=== PATIENT | female | born 1940 | race Caucasian/White ===

== ENCOUNTER 2016-12-22 12:30 | Inpatient (IN) | payer MEDICARE ==
[2017-01-02 09:34] LABS: ABO GROUP O; ANTIBODY SCREEN NEGATIVE (NEGATIVE); RH TYPE POSITIVE
[2017-01-02] MEDS ORDERED: NALOXONE 0.4 MG/1 ML VIAL IVP PRN (13:02)
[2017-01-02] MEDS ORDERED: MAGNESIUM HYDROXIDE 30 ML UDC PO PRN (13:02)
[2017-01-02] MEDS ORDERED: HYDROMORPHONE HCL 1 MG/ML CPJ IM PRN ×2 (13:02)
[2017-01-02] MEDS ORDERED: ACETAMINOPHEN W/ CODEINE 300MG/60MG TABLET PO PRN ×2 (13:02)
[2017-01-02] MEDS ORDERED: KETOROLAC 30 MG/ML VIAL IVP PRN ×2 (13:02)
[2017-01-02] MEDS ORDERED: ACETAMINOPHEN 325 MG TAB PO PRN (13:02)
[2017-01-02] MEDS ORDERED: DIPHENHYDRAMINE HCL 25 MG CAPSULE PO PRN (13:02)
[2017-01-02] MEDS ORDERED: HYDROCODONE/APAP 10/325 TABLET PO PRN (13:02)
[2017-01-02] MEDS ORDERED: ZOLPIDEM TARTRATE 5 MG TABLET PO PRN (13:02)
[2017-01-02] MEDS ORDERED: HYDROMORPHONE HCL 2 MG/ML VIAL IM PRN (13:02)
[2017-01-02] MEDS ORDERED: BISACODYL 10 MG SUPP RC PRN (13:02)
[2017-01-02] MEDS ORDERED: CEFAZOLIN 2 Gram 2 GM/50 ML BAG IVPB ONE (13:15)
[2017-01-02] MEDS ORDERED: VANCOMYCIN HCL 1,000 MG in 0.9 % SODIUM CHLORIDE 250ML 250 ML IVPB ONE (13:15)
[2017-01-02] MEDS ORDERED: ACETAMINOPHEN 1,000 MG/100 ML BTL IV ONE (13:15)
[2017-01-02] MEDS ORDERED: CELECOXIB 100 MG CAPSULE PO ONE (13:15)
[2017-01-02] MEDS ORDERED: MECLIZINE 25 MG TABLET PO ONE (13:15)
[2017-01-02] MEDS ORDERED: METOCLOPRAMIDE 10 MG TABLET PO ONE (13:15)
[2017-01-02] MEDS ORDERED: FAMOTIDINE 20MG TABLET PO ONE (13:15)
[2017-01-02] MEDS ORDERED: HYDROMORPHONE HCL 2 MG/ML VIAL IV ONE (14:00)
[2017-01-02] MEDS ORDERED: BUPIVACAINE 0.5% W/EPI MPF 30 ML VIAL IVP ONE (14:00)
[2017-01-02] MEDS ORDERED: *PACU ONLY* KETAMINE HCL 10 MG/ML (20ML) VIAL IV ONE (14:00)
[2017-01-02] MEDS ORDERED: FENTANYL PF 100MCG/2ML VIAL IV ONE (14:00)
[2017-01-02] MEDS ORDERED: EPHEDRINE SULFATE 50 MG/ML ML IV ONE (14:00)
[2017-01-02] MEDS ORDERED: MIDAZOLAM HCL 2MG/2ML VIAL IV ONE (14:00)
[2017-01-02] MEDS ORDERED: LIDOCAINE 2% MDV (20MG/ML) 20ML VIAL IV ONE (14:00)
[2017-01-02] MEDS ORDERED: PROPOFOL 10 MG/ML VIAL IV ONE (14:00)
--- NOTE | 2017-01-02 18:11 | Rehab Evaluation ---
Patient Information - Patient Information Diagnosis: JESSICA left secondary to OA Ordered Treatment: PT Evaluate and Treat Status: Initial Evaluation Surgery: Yes (JESSICA left) Date of Surgery: 01/02/17 Past Medical/Surgical Hx: PAST MEDICAL/SURGICAL HISTORY Past Surgical History lumbar fusion cervical fusion CTS bilat PMH - Respiratory Hx Respiratory Disorders No PMH - Cardiovascular Hx Cardiovascular Disorders Yes Hx Hypertension Yes: good control on meds Hx Rheumatic Fever Yes: 3x's as a child Exercise Tolerance Fair Comment: high cholesterol PMH - Neuro Hx Neurological Disorders No PMH - GI Hx Gastrointestinal Disorders Yes Hx Gastroesophageal Reflux Yes: on meds good control Hx Irritable Bowel Yes: mild PMH - Hx Genitourinary Disorders No Hx Age of Menopause 42 PMH - Endocrine Hx Endocrine Disorders No Hx Diabetes No Hx Thyroid Disease No PMH - Musculoskeletal Hx Musculoskeletal Disorders Yes Hx Arthritis Yes Hx Osteoporosis Yes PMH - Psych Hx Psychiatric Problems No PMH - Hematology/Oncology Hx Hematology/Oncology No Disorders Precautions: [place], Fall, Other (JESSICA precautions) - Time With Patient Total Time Spent With Patient (Min): 30 Treatment Procedures: Detail (Patient seen in room, initially had too much pain to even try exercises, but nurse gave her something else for pain and PT came back 20 min later and she was able to tolerate some exercises for left hip, reviewed hip precautions and was able to sit up and ambulate to bathroom with standard walker and CGA. Became nauseous initially and after back from bathroom but no vomiting. Ambulation about 20 feet total then assisted patient back into bed with left LE supported with pillow between knees.) Subjective Information - Subjective Information Per Patient (Patient lives with , has everything needed to go home with family assist.) Objective Data - Pain Pain Present: Yes Pain Intensity: 10 - Mental Status Patient Orientation: Oriented x3 - Visual Perception Appears within normal limits for therapeutic activities - ROM Within normal limits (except left hip decreased secondary to surgery and pain about 75% today.) - Strength/Tone Within normal limits (except left hip, but patient is able to weightbear with min symptoms after new pain med.) - Coordination Appears within normal limits for therapeutic activities - Bed Mobility Needs Assist (Patient needed some assist to get herself to edge of bed then sit to stand with cues initially. Also needed cues for proper hip precautions initially.) - Transfers Needs Assist - Balance Balance Sitting: Good Balance Standing: Good - Sensation Intact - Gait Detail (Standard walker WBAT left 20 feet to bathroom initially and back to bed. ) Therapy Assessment - Therapy Assessment Detail (Patient is having some issues with pain control today but did better after second injection. Able to move quite well with walker and into/out of bed. ) Patient Education - Patient Education Teaching Topic: Equipment Use, Exercise/Activity Response: Return Demonstration Teaching Method: Demonstration Teaching Recipient: Patient Barriers To Learning: None Problem List - Problem List Physical Therapy Problem List: Detail (Some issues with bed mobility, pain control and functional ambulation yet. Patient also having issues with voiding today.) Goals - Goals Physical Therapy Goals: Patient will be independent with hip precautions, mobility into/out of bed and gait community distances for safety to go home. Prognosis - Prognosis Good (Should do better as pain controlled better.) Plan - Plan Physical Therapy Plan: Continue PT BID day after surgery, possibly next day also as needed to go home safely with family.
[2017-01-02] MEDS: ONDANSETRON HCL IV 4 MG/2 ML VIAL IVP PRN (18:25)
[2017-01-02] MEDS: CEFAZOLIN 2 Gram 2 GM/50 ML BAG IVPB SCH (20:03)
[2017-01-02] MEDS: HYDROCODONE/APAP 10/325 TABLET PO PRN (20:30)
[2017-01-02] MEDS: POTASSIUM CHLORIDE/D5-0.9%NACL 20 MEQ/1,000 ML BAG IV SCH (20:33)
[2017-01-02] MEDS: ATORVASTATIN 20 MG TABLET PO SCH (22:42)
[2017-01-02] MEDS: DOCUSATE SODIUM 100 MG CAPSULE PO SCH (22:44)
[2017-01-03] MEDS: GABAPENTIN 300 MG CAPSULE PO SCH ×2 (00:24→22:27)
[2017-01-03] MEDS: POTASSIUM CHLORIDE/D5-0.9%NACL 20 MEQ/1,000 ML BAG IV SCH ×2 (00:25→06:15)
[2017-01-03] MEDS: CEFAZOLIN 2 Gram 2 GM/50 ML BAG IVPB SCH ×2 (04:14→09:45)
[2017-01-03] MEDS: HYDROCODONE/APAP 10/325 TABLET PO PRN ×5 (04:21→21:12)
[2017-01-03 06:41] LABS: HEMATOCRIT 32.7 % (35.0-47.0); HEMOGLOBIN 10.3 gm/dl (11.6-16.0)
[2017-01-03] MEDS: PANTOPRAZOLE SODIUM 40 MG TABLET PO SCH (06:52)
[2017-01-03 06:54] LABS: ANION GAP 3.2 (7-16); BLOOD UREA NITROGEN 14 mg/dL (7-17); CARBON DIOXIDE 24.8 mmol/L (22-30); CREATININE 0.6 mg/dL (0.52-1.04); EST GLOMERULAR FILTRATION RATE > 60 ml/min; GLUCOSE,RANDOM 114 mg/dL (70-110)
--- NOTE | 2017-01-03 08:36 | Rehab Evaluation ---
Patient Information - Patient Information Diagnosis: JESSICA left secondary to OA Ordered Treatment: OT Evaluate and Treat Status: Initial Evaluation Surgery: Yes (JESSICA left) Date of Surgery: 01/02/17 Past Medical/Surgical Hx: PAST MEDICAL/SURGICAL HISTORY Past Surgical History lumbar fusion cervical fusion CTS bilat PMH - Respiratory Hx Respiratory Disorders No PMH - Cardiovascular Hx Cardiovascular Disorders Yes Hx Hypertension Yes: good control on meds Hx Rheumatic Fever Yes: 3x's as a child Exercise Tolerance Fair Comment: high cholesterol PMH - Neuro Hx Neurological Disorders No PMH - GI Hx Gastrointestinal Disorders Yes Hx Gastroesophageal Reflux Yes: on meds good control Hx Irritable Bowel Yes: mild PMH - Hx Genitourinary Disorders No Hx Age of Menopause 42 PMH - Endocrine Hx Endocrine Disorders No Hx Diabetes No Hx Thyroid Disease No PMH - Musculoskeletal Hx Musculoskeletal Disorders Yes Hx Arthritis Yes Hx Osteoporosis Yes PMH - Psych Hx Psychiatric Problems No PMH - Hematology/Oncology Hx Hematology/Oncology No Disorders Premorbid Status: Detail (Pt lives with spouse in a 1 story house with basement , she stays on the main floor. She has 3 steps with arpan handrailings at the entrance. She has a walk in shower and a tub/shower combination, a standard height toilet (no grab bars), a toilet riser, shower bench, wheelchair, cane, standard walker and 4 wheeled walker. She is normally responsible for home mgmt , meal prep, laundry although her spouse will be completing these tasks for a while.) Social History: Detail (Supportive spouse.) Precautions: [place], Fall, Other (JESSICA precautions) - Time With Patient Total Time Spent With Patient (Min): 40 Treatment Procedures: Detail (OT eval low complexity) Subjective Information - Subjective Information Per Patient, Other (Spouse present for evaluation) Objective Data - Pain Pain Present: Yes (left hip pain) - Mental Status Patient Orientation: Oriented x3 - Visual Perception Appears within normal limits for therapeutic activities - ROM Within normal limits (Arpan UE AROM WNL) - Strength/Tone Within normal limits (Arpan UE MMT WNL) - Coordination Appears within normal limits for therapeutic activities - Bed Mobility Independent (Ind with supine to sit.) - Transfers Independent (Ind with sit to stand and transfer to chair using standard walker.) - Balance Balance Sitting: Good - Sensation Intact - ADL's/IADL's Detail (Reviewed modified dressing techniques for LE dressing within total hip precautions using adaptive equipment. OT demonstrated use of corporate associate, sock aid and shoe horn. Pt and spouse report they do not feel equipment is needed at this time as spouse will be with pt and will assist with all needs.) Therapy Assessment - Therapy Assessment Detail (Pt and spouse educated and verbalize learning of hip precautions and use of adaptive equipment for LE self cares.) Problem List - Problem List Physical Therapy Problem List: Detail (Some issues with bed mobility, pain control and functional ambulation yet. Patient also having issues with voiding today.) Occupational Therapy Problem List: Detail (No OT problems identified at this time.) Goals - Goals Physical Therapy Goals: Patient will be independent with hip precautions, mobility into/out of bed and gait community distances for safety to go home. Occupational Therapy Goals: No OT goals identified at this time. Prognosis - Prognosis Good Plan - Plan Physical Therapy Plan: Continue PT BID day after surgery, possibly next day also as needed to go home safely with family. Occupational Therapy Plan: No further OT needed at this time. Thank you for this referral.
[2017-01-03] MEDS: FERROUS SULFATE 325 MG TAB PO SCH (09:07)
[2017-01-03] MEDS: MULTIVITAMINS/MINERALS TABLET PO SCH (09:07)
[2017-01-03] MEDS: CHOLECALCIFEROL 1,000 UNIT TABLET PO SCH (09:07)
[2017-01-03] MEDS: ASPIRIN 81 MG TABEC PO SCH (09:07)
[2017-01-03] MEDS: DOCUSATE SODIUM 100 MG CAPSULE PO SCH ×2 (09:07→21:14)
[2017-01-03] MEDS: RIVAROXABAN 10 MG TABLET PO SCH (09:08)
[2017-01-03] MEDS: PATIENT OWN MED: AMLODIPINE 5 MG PO SCH (09:08)
[2017-01-03] MEDS: ONDANSETRON HCL IV 4 MG/2 ML VIAL IVP PRN (11:23)
--- NOTE | 2017-01-03 15:27 | Physical Therapy Tx Note ---
Physical Therapy Tx Note - Treatment Note Tolerated: Fair (some increased c/o pain after AM session.) Total Time Spent With Patient: 95 Physical Therapy Tx Note: Detail (AM Rx: HEP review, hip precautions, trainsfer training, problem solve for her shower situation, and gait training on level surfaces. we also discussed car transfers and went over front seat and back seat car transfers. The pt needed additional cues to avoid violating hip precautions during bed transfers, and proper form during ambulation. PMRx: worked on transfers bed and comode, ambulation on level surfaces and stairs, as well as hip precautions during all those above activities. Pt continues to IR hip during bed to stand transfers with bed mobility (moving into sitting @ bedside position). Pt also required physical and verbal cues during ascending and descending staires.) Physical Therapy Problem List: Detail (Some issues with bed mobility, pain control and functional ambulation yet. Patient also having issues with voiding today.) Physical Therapy Goals: Patient will be independent with hip precautions, mobility into/out of bed and gait community distances for safety to go home. Physical Therapy Plan: Continue PT BID day after surgery, possibly next day also as needed to go home safely with family.
[2017-01-03] MEDS: ATORVASTATIN 20 MG TABLET PO SCH (21:13)
[2017-01-04] MEDS: AL HYDROX/MAG HYDROX 30ML UD PO PRN ×2 (00:52→08:53)
[2017-01-04] MEDS: HYDROCODONE/APAP 10/325 TABLET PO PRN ×2 (06:04→12:35)
[2017-01-04] MEDS: PANTOPRAZOLE SODIUM 40 MG TABLET PO SCH (06:04)
[2017-01-04 06:27] LABS: HEMOGLOBIN 10.8 gm/dl (11.6-16.0)
[2017-01-04 06:37] LABS: ANION GAP 3.1 (7-16); BLOOD UREA NITROGEN 14 mg/dL (7-17); CARBON DIOXIDE 27.9 mmol/L (22-30); CREATININE 0.7 mg/dL (0.52-1.04); EST GLOMERULAR FILTRATION RATE > 60 ml/min; GLUCOSE,RANDOM 113 mg/dL (70-110)
[2017-01-04] MEDS: ASPIRIN 81 MG TABEC PO SCH (09:34)
[2017-01-04] MEDS: CHOLECALCIFEROL 1,000 UNIT TABLET PO SCH (09:34)
[2017-01-04] MEDS: DOCUSATE SODIUM 100 MG CAPSULE PO SCH (09:34)
[2017-01-04] MEDS: FERROUS SULFATE 325 MG TAB PO SCH (09:34)
[2017-01-04] MEDS: MULTIVITAMINS/MINERALS TABLET PO SCH (09:34)
[2017-01-04] MEDS: RIVAROXABAN 10 MG TABLET PO SCH (09:34)
[2017-01-04] MEDS: PATIENT OWN MED: AMLODIPINE 5 MG PO SCH (09:34)
--- NOTE | 2017-01-04 10:56 | Physical Therapy Tx Note ---
Physical Therapy Tx Note - Treatment Note Tolerated: Good (Patient sick to stomach this am and refused treatment initially , so gave her time and returned later. She was able to participate after med took affect. Able to get into/out of bed with very little assist for left LE and able to ambulate independently with standard walker.) Total Time Spent With Patient: 30 Physical Therapy Tx Note: Detail (Patient seen at bedside, supine to sit with min assist with left LE then slid to edge of bed with min assist, sit to stand independently then ambulated with CGA and standard walker to bathroom to use commode then brush teeth- patient independent with same. Ambulated in christian about 100 feet then back to bed, into bed with very little assist with left LE and reviewed hip precautions and exercises with patient performing some reps with light assist. Left patient with call light close, tray table close and pillow between knees.) Physical Therapy Problem List: Detail (Some issues with bed mobility, pain control and functional ambulation yet. Patient also having issues with voiding today.) Physical Therapy Goals: Patient will be independent with hip precautions, mobility into/out of bed and gait community distances for safety to go home. Prognosis: Good (Patient doing very well with rehab of left hip, some pain issues yet and nauseous today again. Should do well at home with husbands assist.) Physical Therapy Plan: Continue PT BID day after surgery, possibly next day also as needed to go home safely with family.
[2017-01-04] MEDS: ONDANSETRON HCL IV 4 MG/2 ML VIAL IVP PRN (10:59)
--- NOTE | 2017-01-04 15:23 | Operative Note ---
DATE OF SURGERY: 01/02/2017 PREOPERATIVE DIAGNOSIS: End-stage arthrosis of the left hip. POSTOPERATIVE DIAGNOSIS: End-stage arthrosis of the left hip. OPERATION: Cementless left total hip arthroplasty using [employer] components, with a size 52 no-hole Reflection cup, 35-degree offset 32-mm diameter highly cross-linked liner, a size 12 high-offset cementless [place] stem with a +8 32-mm diameter cobalt chrome head. Surgeon: Andrea Vora MD Anesthesia: Spinal. PREPARATION: Chloraprep. INDIVIDUAL CONSIDERATIONS: None. DOBIE WORKER: Mrs. Suly Santos PROCEDURE: The patient was taken to the operating room, placed supine on the operating room table. She had a successful induction with spinal anesthetic. She was then placed on her side left side up and her left leg and hip were prepped and draped in the usual fashion. The patient had a direct posterior approach to the hip. Sharp dissection carried down through skin and subcutaneous tissues. Small veins were coagulated with the Bovie. The tensor gluteal fascia was opened along the entire length of the incision, and deep retractors were placed. Short external rotators were identified, piriformis fossa removed, exposed hip posterior capsule. Posterior capsulectomy was performed. The hip was dislocated posteriorly. The patient had a long femoral neck and a very shallow socket. Femoral neck cut was then made about a fingerbreadth above the lesser troch using oscillating saw, and a rim capsulectomy was performed. There was bone on bone contact. The patient had very shallow socket. I started with a 43 to medialize the medial wall and then reamed the introitus to 51 for a size 52 cup. I slightly centrally reamed to 50. I then after irrigation impacted a size 52 no-hole Reflection cup in 20 degrees of forward flexion and 40 degrees of abduction using the extraarticular alignment guide and bony landmarks. There was solid cementless fixation. A center cap screw was placed and after irrigation, I impacted a 35-degree offset 32-mm diameter liner with the offset posteriorly and slightly inferiorly. This gave an excellent stable acetabular construct and this was packed off. The proximal femur was delivered into the wound. Box cutting osteotome was used to remove proximal metaphyseal bone. Instant reaming was done to a size 12 cortex that may be 10-11. I broached to a size 12 anteversion following anteversion angle of 25-30 degrees. Solid cementless fixation with a broach. I went ahead and calcar reamed and with a +8 high offset, there was excellent stability. I went ahead and thoroughly irrigated it out and then impacted a high-offset [place] stem with solid cementless fixation, solid calcar contact. I dried off the Peterson taper and impacted a +8 32-mm diameter cobalt chrome head. I then after irrigation reduced the hip. I had full anterior stability and full extension and external rotation. was normal. I had at 90 degrees of flexion, 90 degrees of internal rotation full stability, had full flexion up to with the knee into the chest and internal rotation I had full stability. After irrigation, hemostasis was obtained with a Bovie. Sciatic nerve was inspected and found to be completely intact. The tensor gluteal fascia was closed with running #2 quill, subcu was closed with 0 quill, skin was closed with mason. The patient did receive 1 g of tranexamic acid IV preoperatively. We mixed 1 g of tranexamic acid with 40 mL of saline and placed this deep in the fascia. The skin and subcutaneous tissue was also infiltrated with 30 mL of 0.5% Marcaine with epinephrine. Sterile bulky compressive Aquacel type dressing was applied. The patient tolerated the procedure well. Needle and sponge counts were correct. Estimated blood loss was 200 mL. There were no complications. CC: Severo TSE
--- NOTE | 2017-01-04 15:39 | Discharge Summary ---
DATE OF ADMISSION: 01/02/2017. DATE OF DISCHARGE: 01/04/2017. DATE OF SURGERY: 01/02/2017. PRIMARY DIAGNOSIS: End-stage arthrosis of the left hip. SECONDARY DIAGNOSES: 1. Acute operative blood loss anemia. 2. Dyslipidemia, stable. 3. Osteoporosis, stable. OPERATIONS AND PROCEDURES: Cementless left total hip arthroplasty. HISTORY OF PRESENT ILLNESS: The patient is a delightful 76-year-old female who presents with end-stage arthrosis of her left hip. She was admitted after left total hip arthroplasty. HOSPITAL COURSE: Postoperatively she did well. Her hospital course was unremarkable. Her discharge hemoglobin was above 9. The plan is discharge her home in care of her family. She will be given [place] for pain. She will take Xarelto, followed by her regular aspirin for DVT prophylaxis, and she will follow up in my office in 4 weeks. The visiting nurse will remove her sutures in 2 weeks. These instructions were given directly to her and her . Her discharge condition was good. CC: Dr. Severo TSE
== END 2017-01-04 13:56 | disposition home health service (06) | DRG 470 ==
LOC: MEDSURG 01-02 08:27
PROVIDERS: ADMIT Orthopaedic Surgery; ATTEND Orthopaedic Surgery
PROC: 0SRB02A Replacement of Left Hip Joint with Metal on Polyethylene Synthetic Substitute, Uncemented, Open Approach (ICD-10-PCS; principal; 2017-01-02 11:00)
DX: M16.12 Unilateral primary osteoarthritis, left hip (principal); I10 Essential (primary) hypertension; E78.00 Pure hypercholesterolemia, unspecified
CPT/HCPCS: 80048; 85014; 85018; 86850; 86900; 86901; 97116; 97165; 97530; 97535; J1885; J2405; J3480; J7050